=== PATIENT | female | born 1995 | race Caucasian/White ===

== ENCOUNTER 2017-04-10 23:15 | Emergency (ER) | payer OTHER ==
--- NOTE | 2017-04-11 03:17 | RADIOLOGY REPORT (SQ) ---
EXAM DESCRIPTION: CT THORACIC SPINE WITHOUT CLINICAL HISTORY: trauma COMPARISON: None available TECHNIQUE: Axial CT of the thoracic spine obtained without contrast. FINDINGS: Alignment of the thoracic spine is maintained without evidence of subluxation. No fracture identified. Vertebral body height preserved. Prevertebral soft tissues are unremarkable. Intervertebral disc height preserved. No fracture of the visualized ribs. No pneumothorax noted in the visualized lungs. No abnormalities of visualized mediastinum. Slice abdominal soft tissues are unremarkable. DLP: 295.69 mGy-cm IMPRESSION: 1. No acute fracture or subluxation of the thoracic spine. This exam was performed according to our departmental dose-optimization program, which includes automated exposure control, adjustment of the mA and/or kV according to patient size and/or use of iterative reconstruction technique.
[2017-04-11 03:32] VITALS: BP 103/55
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
== END 2017-04-11 03:40 | disposition home or self-care (01) ==
LOC: ER 23:15
DX: S29.019A Strain of muscle and tendon of unspecified wall of thorax, initial encounter (principal); V49.50XA Passenger injured in collision with unspecified motor vehicles in traffic accident, initial encounter; Z88.2 Allergy status to sulfonamides
CPT/HCPCS: 72128; 99283

== ENCOUNTER 2017-05-01 19:07 | Inpatient (IN) | payer OTHER ==
[2017-05-01] MEDS ORDERED: NORMAL SALINE 1000 ML 1,000 ML IV ONE ×2 (20:12→22:25)
[2017-05-01] MEDS ORDERED: LORAZEPAM INJ 2 MG/1 ML VIAL IV ONE (20:13)
[2017-05-01] MEDS ORDERED: ONDANSETRON HCL INJ/PF 4 MG/2 ML SDV IV ONE (20:13)
--- NOTE | 2017-05-01 20:17 | ER Document Report ---
ED Medical Screen (RME) - General Chief Complaint: Alcohol Withdrawl Stated Complaint: VOMITING Time Seen by Provider: 05/01/17 20:07 Notes: 21-year-old female here with complaints of lightheadedness, tremors, nausea, vomiting, and feeling bad that has been ongoing since earlier today. She reports that she went on a 1 week drinking binge with her friends and has been drinking 12 beers daily for the past 1 week. She reports that she does not usually drink alcohol except on special occasions that are few and far between. She cannot tell me why she did this. She denies any prior history of atrial fibrillation or heart problems. EXAM Tachycardic low 100s Clear to auscultation bilaterally Peripheral tremors visualized TRAVEL OUTSIDE OF THE [place] IN LAST 30 DAYS: No - Related Data Allergies/Adverse Reactions: Sulfa (Sulfonamide Antibiotics) Allergy (Verified 05/01/17 19:09) Past Medical History - Social History Frequency of alcohol use: Binge Drug Abuse: None Renal/ Medical History: Denies: Hx Peritoneal Dialysis Past Surgical History: Reports: Hx Orthopedic Surgery - R arm Physical Exam - Vital signs Vitals: Temp Pulse Resp BP Pulse Ox 98.7 F 103 H 18 124/81 99 05/01/17 19:38 05/01/17 19:38 05/01/17 19:38 05/01/17 19:38 05/01/17 19:38 Course - Vital Signs Vital signs: Temp Pulse Resp BP Pulse Ox 98.7 F 103 H 18 124/81 99 05/01/17 19:38 05/01/17 19:38 05/01/17 19:38 05/01/17 19:38 05/01/17 19:38
[2017-05-01] MEDS ORDERED: KETOROLAC TROMETHAMINE INJ/PF 30 MG/1 ML SDV IV ONE (21:06)
[2017-05-01 21:11] LABS: ABSOLUTE LYMPHOCYTES (AUTO) 1.8 10^3/uL (0.5-4.7); ABSOLUTE NEUT (AUTO) 9.1 10^3/uL (1.7-8.2); BASOPHILS % (AUTO) 0.3 % (0-2); HEMATOCRIT 44.6 % (36.0-47.0); HEMOGLOBIN 15.6 g/dL (12.0-15.5); HGB HCT DIFFERENCE 2.2; MEAN CORPUSCULAR HEMOGLOBIN 28.3 pg (27.0-33.4); MEAN CORPUSCULAR HGB CONC 35.1 g/dL (32.0-36.0); MEAN CORPUSCULAR VOLUME 81 fl (80-97); MONOCYTES % (AUTO) 8.2 % (3-13); RED BLOOD COUNT 5.53 10^6/uL (3.72-5.28); RED CELL DISTRIBUTION WIDTH 13.4 % (11.5-14.0); SEGMENTED NEUTROPHILS % (AUTO) 76.5 % (42-78); WHITE BLOOD COUNT 11.9 10^3/uL (4.0-10.5)
[2017-05-01 21:30] LABS: BLOOD UREA NITROGEN 10 mg/dL (7-20); CALCIUM 9.2 mg/dL (8.4-10.2); CREATININE RESULT 0.57 mg/dL (0.52-1.25); GLUCOSE 89 mg/dL (75-110); PHOSPHORUS 3.6 mg/dL (2.5-4.5)
[2017-05-01 21:42] LABS: CARBON DIOXIDE 31 mmol/L (22-30); CHLORIDE 66 mmol/L (98-107); SODIUM 122.7 mmol/L (137-145)
--- NOTE | 2017-05-01 21:50 | EKG REPORT ---
SEVERITY:- ABNORMAL ECG - SINUS RHYTHM NONSPECIFIC T ABNORMALITIES, ANT-LAT LEADS PROLONGED QT INTERVAL : Confirmed by: Anson Thomason 01-May-2017 21:48:50
[2017-05-01 21:56] LABS: ANION GAP 26 (5-19)
[2017-05-01 21:59] LABS: POTASSIUM 2.6 mmol/L (3.6-5.0)
[2017-05-01] MEDS ORDERED: POTASSI CL 20 MEQ/50 ML RIDER 20 MEQ/50 ML RTUPB IV SCH (22:25)
[2017-05-01 22:58] LABS: ALANINE AMINOTRANSFERASE 48 U/L (9-52); ALBUMIN 5.1 g/dL (3.5-5.0); ALKALINE PHOSPHATASE 187 U/L (38-126); ASPARTATE AMINO TRANSFERASE 100 U/L (14-36); BILIRUBIN,DIRECT 0.8 mg/dL (0.0-0.4); BILIRUBIN,TOTAL 2.8 mg/dL (0.2-1.3); LIPASE 106.7 U/L (23-300); TOTAL PROTEIN 8.1 g/dL (6.3-8.2)
[2017-05-01 23:01] LABS: ALCOHOL 148 mg/dL (NONE DETECTED)
--- NOTE | 2017-05-01 23:34 | ER Document Report ---
ED General - General Chief Complaint: Alcohol Withdrawl Stated Complaint: VOMITING Time Seen by Provider: 05/01/17 20:07 TRAVEL OUTSIDE OF THE [place] IN LAST 30 DAYS: No - HPI Patient complains to provider of: Vomiting Notes: Patient coming in for evaluation of vomiting patient states she has been drinking alcohol for approximately 1 week states she went on a alcohol binge patient states she has had episodes of this before patient denies any homicidal suicidal ideation. Patient denies any smoking or other drug abuse. Patient states last drink was a few beers earlier this morning. Upon my evaluation patient is standing up working out for examination room door patient is easily directed back to the stretcher looks no obvious distress. Patient states she does have a primary care physicians does not know the name of primary care physician. Patient states has history of anxiety and is on hydroxyzine for this denies any extra hydroxyzine over the last few days. Denies any fever chills nausea vomiting diarrhea. Patient states feeling better at this time no longer nauseous. - Related Data Allergies/Adverse Reactions: Sulfa (Sulfonamide Antibiotics) Allergy (Verified 05/01/17 19:09) Past Medical History - Social History Smoking Status: Current Every Day Smoker Frequency of alcohol use: Binge Drug Abuse: None Family History: Reviewed & Not Pertinent Patient has suicidal ideation: No Patient has homicidal ideation: No Renal/ Medical History: Denies: Hx Peritoneal Dialysis Past Surgical History: Reports: Hx Orthopedic Surgery - R arm Review of Systems - Review of Systems Constitutional: No symptoms reported EENT: No symptoms reported Cardiovascular: No symptoms reported Respiratory: No symptoms reported Gastrointestinal: Vomiting Genitourinary: No symptoms reported Female Genitourinary: No symptoms reported Musculoskeletal: No symptoms reported Skin: No symptoms reported Hematologic/Lymphatic: No symptoms reported Neurological/Psychological: No symptoms reported Physical Exam - Vital signs Vitals: Temp Pulse Resp BP Pulse Ox 98.7 F 103 H 18 124/81 99 05/01/17 19:38 05/01/17 19:38 05/01/17 19:38 05/01/17 19:38 05/01/17 19:38 Interpretation: Normal - General General appearance: Appears well, Alert - HEENT Head: Normocephalic, Atraumatic Eyes: Normal Pupils: PERRL - Respiratory Respiratory status: No respiratory distress Chest status: Nontender Breath sounds: Normal Chest palpation: Normal - Cardiovascular Rhythm: Regular Heart sounds: Normal auscultation Murmur: No - Abdominal Inspection: Normal Distension: No distension Bowel sounds: Normal Tenderness: Nontender Organomegaly: No organomegaly - Back Back: Normal, Nontender - Extremities General upper extremity: Normal inspection, Nontender, Normal color, Normal ROM , Normal temperature General lower extremity: Normal inspection, Nontender, Normal color, Normal ROM , Normal temperature, Normal weight bearing. No: Chente's sign - Neurological Neuro grossly intact: Yes Cognition: Normal Orientation: AAOx4 Adolph Coma Scale Eye Opening: Spontaneous [place] Coma Scale Verbal: Oriented Adolph Coma Scale Motor: Obeys Commands [place] Coma Scale Total: 15 Speech: Normal Motor strength normal: LUE, RUE, LLE, RLE Sensory: Normal - Psychological Associated symptoms: Normal affect, Normal mood - Skin Skin Temperature: Warm Skin Moisture: Dry Skin Color: Normal Course - Re-evaluation Re-evalutation: 05/01/17 23:49 Patient evaluation reveals no signs of overt alcohol withdrawals or DTs. Patient denies any visual disturbances patient is not having tremors. Patient' s vital signs otherwise normal at this time. Patient laboratory values shows elevated anion gap more likely due to normal Metabolic acidosis due to her alcohol abuse. Patient does have hyponatremia hypokalemia. IV fluids ordered potassium replacement IV was ordered. Magnesium is normal. Discussed with hospitalist will admit for further evaluation - Vital Signs Vital signs: Temp Pulse Resp BP Pulse Ox 98.7 F 103 H 18 124/81 99 05/01/17 19:38 05/01/17 19:38 05/01/17 19:38 05/01/17 19:38 05/01/17 19:38 - Laboratory Result Diagrams: 05/01/17 20:40 05/01/17 20:40 Laboratory results interpreted by me: 05/01/17 05/01/17 05/01/17 20:40 20:40 20:40 WBC 11.9 H RBC 5.53 H Hgb 15.6 H Absolute Neutrophils 9.1 H Sodium 122.7 L Potassium 2.6 L* Chloride 66 L Carbon Dioxide 31 H Anion Gap 26 H Total Bilirubin 2.8 H Direct Bilirubin 0.8 H AST 100 H Alkaline Phosphatase 187 H Albumin 5.1 H Discharge - Discharge Clinical Impression: Hyponatremia, Hypokalemia, Increased anion gap metabolic acidosis Alcohol intoxication Qualifiers: Complication of substance-induced condition: with unspecified complication Qualified Code(s): F10.929 - Alcohol use, unspecified with intoxication, unspecified Condition: Good Disposition: ADMITTED INPATIENT Admitting Provider: [facility] Unit Admitted: [facility]
[2017-05-01] MEDS ORDERED: IPRATROPIUM/ALBUTEROL 0.5-2.5 MG/3 ML AMPUL NEB PRN (23:35)
[2017-05-01] MEDS ORDERED: MAG HYDROX/AL HYDROX/SIMETH SUSP 30 ML UDCUP PO PRN (23:35)
[2017-05-01 23:47] LABS: PROTHROMBIN TIME 12.4 SEC (11.4-15.4)
[2017-05-01 23:49] LABS: APPEARANCE,URINE SLIGHTLY-CLOUDY; BILIRUBIN,URINE NEGATIVE (NEGATIVE); GLUCOSE, URINE NEGATIVE (NEGATIVE); KETONES,URINE 80 mg/dL (NEGATIVE); LEUKOCYTE ESTERASE,URINE SMALL (NEGATIVE); NITRITE,URINE NEGATIVE (NEGATIVE); PROTEIN,URINE >=500 mg/dL (NEGATIVE); URINE SPECIFIC GRAVITY 1.031
[2017-05-02 00:02] LABS: URINE BARBITURATES SCREEN NEGATIVE; URINE METHADONE SCREEN NEGATIVE; URINE OPIATES LOW NEGATIVE; URINE PHENCYCLIDINE SCREEN NEGATIVE
[2017-05-02] MEDS ORDERED: THIAMINE HCL INJ 200 MG/2 ML VIAL IV PRN (00:08)
[2017-05-02] MEDS ORDERED: FOLIC ACID INJ 5 MG/1 ML 10 ML VIAL IV PRN (00:08)
[2017-05-02] MEDS ORDERED: THIAMINE HCL 100 MG, FOLIC ACID 1 MG in NORMAL SALINE 250 ML IV ONE (00:15)
[2017-05-02] MEDS ORDERED: DIAZEPAM 5 MG TABLET PO ONE (00:15)
[2017-05-02] MEDS ORDERED: SODIUM CHLORIDE 3% 500 ML IV ONE (00:17)
[2017-05-02] MEDS: POTASSI CL 20 MEQ/50 ML RIDER 20 MEQ/50 ML RTUPB IV SCH ×6 (00:34→20:52)
[2017-05-02] MEDS ORDERED: ARIPIPRAZOLE 5 MG TABLET PO ONE (01:00)
[2017-05-02] MEDS ORDERED: SODIUM CHLORIDE 3% 100 ML IV ONE (01:30)
[2017-05-02] MEDS ORDERED: RINGERS SOLUTION,LACTATED 1,000 ML IV ONE (01:52)
[2017-05-02] MEDS ORDERED: INFLUENZA ADLT QUAD (36MOS+) 2017-18 VAC 0.5 ML SYR IM PRN (02:04)
[2017-05-02 02:28] LABS: HEMATOCRIT 38.5 % (36.0-47.0); HGB HCT DIFFERENCE 1.7; MEAN CORPUSCULAR HGB CONC 34.7 g/dL (32.0-36.0); MEAN CORPUSCULAR VOLUME 81 fl (80-97); RED BLOOD COUNT 4.77 10^6/uL (3.72-5.28); RED CELL DISTRIBUTION WIDTH 13.2 % (11.5-14.0); WHITE BLOOD COUNT 12.8 10^3/uL (4.0-10.5)
[2017-05-02 02:32] LABS: HEMOGLOBIN 13.4 g/dL (12.0-15.5)
[2017-05-02 02:37] LABS: ALANINE AMINOTRANSFERASE 44 U/L (9-52); ALBUMIN 3.9 g/dL (3.5-5.0); ALKALINE PHOSPHATASE 139 U/L (38-126); ANION GAP 18 (5-19); ASPARTATE AMINO TRANSFERASE 83 U/L (14-36); BILIRUBIN,DIRECT 0.6 mg/dL (0.0-0.4); BILIRUBIN,TOTAL 2.9 mg/dL (0.2-1.3); BLOOD UREA NITROGEN 10 mg/dL (7-20); CALCIUM 8.1 mg/dL (8.4-10.2); CARBON DIOXIDE 28 mmol/L (22-30); CHLORIDE 80 mmol/L (98-107); CREATININE RESULT 0.58 mg/dL (0.52-1.25); GLUCOSE 60 mg/dL (75-110); POTASSIUM 3.1 mmol/L (3.6-5.0)
[2017-05-02] MEDS ORDERED: DEXTROSE 50%-WATER 25 GM/50 ML DISP.SYRIN IV ONE ×2 (04:48→05:00)
--- NOTE | 2017-05-02 04:49 | PDOC H&P ---
History of Present Illness Admission Date/PCP: 05/02/17 00:03 Patient complains of: Nausea and hallucinations History of Present Illness: PERRY VAZQUEZ is a 21 year old female with a past medical history of anxiety disorder. Who presents after a 10 day binge of alcohol associated with nausea vomiting and visual hallucination. In the emergency room she is found to have metabolic acidosis, hyponatremia and a potassium of 2.6 she is referred to the hospitalist for admission patient denies new medication, previous episode of alcohol withdrawal or recreational drug use. She currently denies headache chest pain shortness of breath or palpitations. Past Medical History Medical History: None Pulmonary Medical History: Reports: None Neurological Medical History: Reports: None Endocrine Medical History: Reports: None Renal/ Medical History: Reports: None Malignancy Medical History: Reports: None GI Medical History: Reports: None Musculoskeltal Medical History: Reports: None Skin Medical History: Reports: None Psychiatric Medical History: Reports: General Anxiety Disorder Traumatic Medical History: Reports: None Hematology: Reports: None Infectious Medical History: Reports: None Past Surgical History Past Surgical History: Reports: Orthopedic Surgery - R arm Social History Information Source: Patient, Parent Smoking Status: Current Some Day Smoker Frequency of Alcohol Use: Occasional Hx Recreational Drug Use: No Hx Prescription Drug Abuse: No - Advance Directive Resuscitation Status: Full Code Family History Family History: Reviewed & Not Pertinent Parental Family History Reviewed: Yes Children Family History Reviewed: Yes Sibling(s) Family History Reviewed.: Yes Medication/Allergy Home Medications: Hydroxyzine HCl [Hydroxyzine HCl] 1 tab PO BID PRN 04/11/17 Allergies/Adverse Reactions: Sulfa (Sulfonamide Antibiotics) Allergy (Verified 05/01/17 19:09) peanut Adverse Reaction (Verified 05/02/17 02:15) Review of Systems Constitutional: PRESENT: as per HPI, anorexia, fatigue, weakness. ABSENT: fever (s), headache(s) Eyes: PRESENT: visual disturbances - Visual hallucination Ears: ABSENT: hearing changes Cardiovascular: ABSENT: chest pain, dyspnea on exertion, edema, orthropnea, palpitations Respiratory: ABSENT: cough, hemoptysis Gastrointestinal: PRESENT: abdominal pain, nausea, vomiting Genitourinary: ABSENT: dysuria, hematuria Musculoskeletal: ABSENT: joint swelling Neurological: ABSENT: abnormal gait, abnormal speech, confusion, dizziness, focal weakness, syncope Psychiatric: PRESENT: anxiety Endocrine: ABSENT: cold intolerance, heat intolerance, polydipsia, polyuria Hematologic/Lymphatic: ABSENT: easy bleeding, easy bruising Physical Exam Vital Signs: Temp Pulse Resp BP Pulse Ox 99.3 F 104 H 20 135/68 H 100 05/02/17 04:15 05/02/17 04:15 05/02/17 04:15 05/02/17 04:15 05/02/17 04:15 Intake & Output 04/30/17 05/01/17 05/02/17 11:59 11:59 11:59 Weight 64.8 kg General appearance: PRESENT: no acute distress, well-developed, well-nourished Head exam: PRESENT: atraumatic, normocephalic Eye exam: PRESENT: conjunctiva pink, EOMI, PERRLA. ABSENT: scleral icterus Ear exam: PRESENT: normal external ear exam Mouth exam: PRESENT: moist, tongue midline Neck exam: ABSENT: carotid bruit, JVD, lymphadenopathy, thyromegaly Respiratory exam: PRESENT: clear to auscultation sunday. ABSENT: rales, rhonchi, wheezes Cardiovascular exam: PRESENT: RRR. ABSENT: diastolic murmur, rubs, systolic murmur Pulses: PRESENT: normal dorsalis pedis pul Vascular exam: PRESENT: normal capillary refill GI/Abdominal exam: PRESENT: normal bowel sounds, soft. ABSENT: distended, guarding, mass, organolmegaly, rebound, tenderness Rectal exam: PRESENT: deferred Extremities exam: PRESENT: full ROM. ABSENT: calf tenderness, clubbing, pedal edema Neurological exam: PRESENT: alert, awake, oriented to person, oriented to place , oriented to time, oriented to situation, CN II-XII grossly intact. ABSENT: motor sensory deficit Psychiatric exam: PRESENT: appropriate affect, normal mood. ABSENT: homicidal ideation, suicidal ideation Skin exam: PRESENT: dry, intact, warm. ABSENT: cyanosis, rash Results Laboratory Results: 05/02/17 02:03 05/02/17 02:03 05/02/17 05/02/17 05/02/17 02:03 02:03 02:03 WBC 12.8 H RBC 4.77 Hgb 13.4 D Hct 38.5 MCV 81 MCH 28.0 MCHC 34.7 RDW 13.2 Plt Count 154 Sodium 126.0 L Cancelled Potassium 3.1 L Cancelled Chloride 80 L Cancelled Carbon Dioxide 28 Cancelled Anion Gap 18 Cancelled BUN 10 Cancelled Creatinine 0.58 Cancelled Est GFR ( Amer) > 60 Cancelled Est GFR (Non-Af Amer) > 60 Cancelled Glucose 60 L Cancelled Calcium 8.1 L Cancelled Total Bilirubin 2.9 H AST 83 H ALT 44 Alkaline Phosphatase 139 H Total Protein 6.0 L Albumin 3.9 Assessment & Plan - Diagnosis (1) Hyponatremia Is this a current diagnosis for this admission?: Yes Plan: Euvolemic hypotonicity secondary to excess beer intake. IMCU admission, 3% saline 100 mL, serum osmolarity and reevaluation of chemistry every 6 hours. Seizure precaution (2) Alcoholic gastritis Is this a current diagnosis for this admission?: Yes Plan: IV Protonix (3) Alcohol intoxication Qualifiers: Complication of substance-induced condition: with unspecified complication Qualified Code(s): F10.929 - Alcohol use, unspecified with intoxication, unspecified Is this a current diagnosis for this admission?: Yes Plan: Supportive measures, thiamine and folate as needed benzodiazepine, mental health consulted (4) Hypokalemia Is this a current diagnosis for this admission?: Yes Plan: Normal magnesium level, 80 mEq of potassium chloride ordered reevaluation of chemistry every 6 hours (5) Increased anion gap metabolic acidosis Is this a current diagnosis for this admission?: Yes Plan: Secondary to alcohol binging and calorie starvation. Lactated Ringer's and dextrose ordered reevaluation of chemistry every 6 - Time Time Spent: 50 to 70 Minutes - Inpatient Certification Medical Necessity: Need Close Monitoring Due to Risk of Patient Decompensation
[2017-05-02] MEDS ORDERED: PANTOPRAZOLE SODIUM 40 MG VIAL IV ONE (05:00)
[2017-05-02] MEDS: HEPARIN SOD (PORCINE) 5,000 UNIT/ML 1 ML SYRINGE SUBCUT SCH ×3 (05:12→21:03)
--- NOTE | 2017-05-02 07:57 | EKG REPORT ---
SEVERITY:- ABNORMAL ECG - SINUS RHYTHM PROBABLE LEFT ATRIAL ABNORMALITY NONSPECIFIC T ABNORMALITIES, ANT-LAT LEADS PROLONGED QT INTERVAL : Confirmed by: Anson Thomason 02-May-2017 07:56:58
[2017-05-02 08:36] LABS: ANION GAP 13 (5-19); BLOOD UREA NITROGEN 11 mg/dL (7-20); CALCIUM 8.4 mg/dL (8.4-10.2); CARBON DIOXIDE 27 mmol/L (22-30); CHLORIDE 84 mmol/L (98-107); GLUCOSE 76 mg/dL (75-110); POTASSIUM 3.2 mmol/L (3.6-5.0); SODIUM 123.6 mmol/L (137-145)
[2017-05-02] MEDS: DOCUSATE SODIUM 100 MG CAPSULE PO SCH ×2 (09:03→17:48)
[2017-05-02] MEDS: DIAZEPAM 5 MG TABLET PO SCH ×2 (09:03→21:04)
[2017-05-02] MEDS: ARIPIPRAZOLE 5 MG TABLET PO SCH ×2 (09:03→21:04)
--- NOTE | 2017-05-02 09:05 | PSYCHOLOGICAL NOTE ---
Psych Note - Psych Note Psych Note: 21-year-old female here with complaints of lightheadedness, tremors, nausea, vomiting, and feeling bad that has been ongoing since earlier today. She reports that she went on a 1 week drinking binge with her friends and has been drinking 12 beers daily for the past 1 week. She reports that she does not usually drink alcohol except on special occasions that are few and far between. Psychiatric consult requested for concerns of depression and alcoholism. Patient disclosed that she came to [facility] ED with concerns of withdrawal's. She states that she was having delusions; denies continued difficulties with her thought processes. Patient states she has a history of anxiety which she takes hydroxyzine (Vistaril), this is prescribed by her primary care physician. Patient has been in [place] for approximately 2 years. She previously lived in [place]. Patient reports that she had been drinking for 4 days because a friend was in town. Patient denies self-harm or thoughts of suicide stating "we were partying." Patient states that it is a "one time thing... I do not normally drink... It is rare when I do." Patient is alert and orientated to person, place, time and circumstance. Mood is euthymic with congruent affect. Patient denies suicidal and homicidal ideation. Patient denies auditory and visual hallucination reports some difficulties with hallucinations last night when going through withdrawal. Delusions are absent and behaviors congruent with intact reality based presentation i.e. organized, linear, rational thinking. Eye contact was well- maintained. Conversational speech was within normal rate, tone and prosody. Intellectual abilities appear to be within the average range. Attention and concentration are good. Insight, judgment, impulse control appear to be fair. 291.9 (F10.99) unspecified alcohol related disorder-at this time it is unclear the level of dependency/use of alcohol Impression\\plan: Patient is considered psychiatrically clear. Patient does not meet IVC criteria per [place] GS 122C. Patient denies suicidal and homicidal ideation stating that she was on a drinking binge for 4 days because she had a friend visiting. Delusions are absent and behaviors congruent with intact reality based presentation i.e. organized, linear, rational thinking. Clinician and patient discussed patient's thoughts on possible sobriety; she denies alcohol abuse stating that this is a rare occasion, that she normally does not drink. Patient has an outpatient provider where she receives her anxiety medication. Patient is recommended to continue outpatient services for her anxiety and is highly encouraged to abstain alcohol. Dr. Bishop was consulted and the care management of this patient.
[2017-05-02] MEDS ORDERED: NORMAL SALINE 1000 ML 1,000 ML IV PRN (09:23)
--- NOTE | 2017-05-02 14:21 | PDOC PROGRESS REPORT ---
Subjective Progress Note for:: 05/02/17 Subjective:: Patient is seen on morning rounds as a follow-up of hypokalemia, hyponatremia, nausea and vomiting secondary to acute alcohol intoxication. The patient is found resting in bed comfortably. She reports that she is continued to have nausea and vomiting throughout the night, however, it has slowed down in frequency. She reports that she is very tired and embarrassed. She also complains of generalized anxiety, no worse than her normal, and requests that I instruct the nurses to provider her scheduled medication an hour early. She denies fever, chills, chest pain, palpitations, dyspnea, cough, abd pain, and diarrhea. She has no questions or concerns at this time. Reason For Visit: HYPOKALEMIA,ALCOHOLIC HEPATITIS,HYPOKALEMIA, Physical Exam Vital Signs: Temp Pulse Resp BP Pulse Ox 99.0 F 96 16 127/73 H 99 05/02/17 12:14 05/02/17 12:14 05/02/17 12:14 05/02/17 12:14 05/02/17 08:25 Intake & Output 05/01/17 05/02/17 05/03/17 06:59 06:59 06:59 Intake Total 1735 0 Output Total 600 Balance 1735 -600 Weight 66 kg General appearance: PRESENT: no acute distress, well-developed, well-nourished, other - Overweight Head exam: PRESENT: atraumatic, normocephalic Eye exam: PRESENT: conjunctiva pink, EOMI, PERRLA. ABSENT: scleral icterus Ear exam: PRESENT: normal external ear exam Mouth exam: PRESENT: moist, tongue midline Neck exam: ABSENT: carotid bruit, JVD, lymphadenopathy, thyromegaly Respiratory exam: PRESENT: clear to auscultation sunday, symmetrical, unlabored. ABSENT: rales, rhonchi, wheezes Cardiovascular exam: PRESENT: RRR, +S1, +S2. ABSENT: diastolic murmur, rubs, systolic murmur Pulses: PRESENT: normal dorsalis pedis pul Vascular exam: PRESENT: normal capillary refill GI/Abdominal exam: PRESENT: normal bowel sounds, soft. ABSENT: distended, guarding, mass, organolmegaly, rebound, tenderness Rectal exam: PRESENT: deferred Extremities exam: PRESENT: full ROM. ABSENT: calf tenderness, clubbing, pedal edema Neurological exam: PRESENT: alert, awake, oriented to person, oriented to place , oriented to time, oriented to situation, CN II-XII grossly intact. ABSENT: motor sensory deficit Psychiatric exam: PRESENT: anxious, appropriate affect, normal mood. ABSENT: homicidal ideation, suicidal ideation Skin exam: PRESENT: dry, intact, warm. ABSENT: cyanosis, rash Results Laboratory Results: 05/02/17 02:03 05/02/17 08:05 05/02/17 05/02/17 05/02/17 02:03 02:03 02:03 WBC 12.8 H RBC 4.77 Hgb 13.4 D Hct 38.5 MCV 81 MCH 28.0 MCHC 34.7 RDW 13.2 Plt Count 154 Sodium 126.0 L Cancelled Potassium 3.1 L Cancelled Chloride 80 L Cancelled Carbon Dioxide 28 Cancelled Anion Gap 18 Cancelled BUN 10 Cancelled Creatinine 0.58 Cancelled Est GFR ( Amer) > 60 Cancelled Est GFR (Non-Af Amer) > 60 Cancelled Glucose 60 L Cancelled Calcium 8.1 L Cancelled Total Bilirubin 2.9 H AST 83 H ALT 44 Alkaline Phosphatase 139 H Total Protein 6.0 L Albumin 3.9 05/02/17 08:05 WBC RBC Hgb Hct MCV MCH MCHC RDW Plt Count Sodium 123.6 L Potassium 3.2 L Chloride 84 L Carbon Dioxide 27 Anion Gap 13 BUN 11 Creatinine 0.60 Est GFR ( Amer) > 60 Est GFR (Non-Af Amer) > 60 Glucose 76 Calcium 8.4 Total Bilirubin AST ALT Alkaline Phosphatase Total Protein Albumin Assessment & Plan - Diagnosis (1) Hyponatremia Is this a current diagnosis for this admission?: Yes Plan: Euvolemic hyponatremia secondary to excessive beer intake. She was admitted to the IMCU and received 3% saline 100 mL's last night and was then placed on LR. Sodium has since decreased (122.7-->126.0-->123.6). Will place pt on NS at 100ml/hr and continue to trend BMP q6 hrs. Seizure precautions are in place. (2) Hypokalemia Is this a current diagnosis for this admission?: Yes Plan: Normal magnesium level. Pt has received a total of 80 mEq of potassium chloride via IV and p.o. routes. Will continue to trend labs q6h and replace as necessary. (3) Alcohol intoxication Qualifiers: Complication of substance-induced condition: with unspecified complication Qualified Code(s): F10.929 - Alcohol use, unspecified with intoxication, unspecified Is this a current diagnosis for this admission?: Yes Plan: Supportive measures; thiamine and folate daily. Scheduled valium 5 mg q 12 hrs with Ativan as needed for withdrawal symptoms. Psychology has met with patient and recommend that she follow up with primary care provider as outpatient. (4) Alcoholic gastritis Is this a current diagnosis for this admission?: Yes (5) Increased anion gap metabolic acidosis Is this a current diagnosis for this admission?: Yes Plan: Resolved; anion gap has closed following IVF resuscitation. Secondary to alcohol binge drinking and calorie starvation. - Time Time Spent with patient: 15-24 minutes Anticipated discharge: Home - Inpatient Certification Based on my medical assessment, after consideration of the patient's comorbidities, presenting symptoms, or acuity I expect that the services needed warrant INPATIENT care.: Yes I certify that my determination is in accordance with my understanding of Medicare's requirements for reasonable and necessary INPATIENT services [42 CFR 412.3e].: Yes Medical Necessity: Need Close Monitoring Due to Risk of Patient Decompensation, Need For IV Fluids
[2017-05-02 15:41] LABS: ANION GAP 13 (5-19); BLOOD UREA NITROGEN 10 mg/dL (7-20); CALCIUM 8.3 mg/dL (8.4-10.2); CARBON DIOXIDE 28 mmol/L (22-30); CHLORIDE 87 mmol/L (98-107); CREATININE RESULT 0.52 mg/dL (0.52-1.25); GLUCOSE 94 mg/dL (75-110); SODIUM 127.7 mmol/L (137-145)
[2017-05-02 15:52] LABS: POTASSIUM 2.7 mmol/L (3.6-5.0)
[2017-05-02] MEDS ORDERED: POTASSI CL 20 MEQ/D5-1/2NS 1L 1,000 ML IV PRN (16:14)
[2017-05-02] MEDS ORDERED: POTASSI CL 20 MEQ/NS 1L 1,000 ML IV PRN (16:19)
[2017-05-02] MEDS ORDERED: LIDOCAINE 2% VISCOUS SOLN 20 ML UDCUP PO ONE (18:00)
[2017-05-02] MEDS ORDERED: METOCLOPRAMIDE HCL ORAL SOLN 10 MG/10 ML UDCUP PO ONE (18:00)
[2017-05-02] MEDS ORDERED: MAG HYDROX/AL HYDROX/SIMETH SUSP 30 ML UDCUP PO ONE (18:00)
[2017-05-02] MEDS: PANTOPRAZOLE SODIUM 40 MG VIAL IV SCH (21:03)
[2017-05-02] MEDS ORDERED: THIAMINE HCL 100 MG, FOLIC ACID 1 MG in NORMAL SALINE 250 ML IV SCH (22:00)
[2017-05-03 01:16] LABS: ANION GAP 11 (5-19); BLOOD UREA NITROGEN 6 mg/dL (7-20); CALCIUM 8.7 mg/dL (8.4-10.2); CARBON DIOXIDE 27 mmol/L (22-30); CHLORIDE 95 mmol/L (98-107); CREATININE RESULT 0.55 mg/dL (0.52-1.25); GLUCOSE 79 mg/dL (75-110); POTASSIUM 3.3 mmol/L (3.6-5.0); SODIUM 132.7 mmol/L (137-145)
[2017-05-03] MEDS: HEPARIN SOD (PORCINE) 5,000 UNIT/ML 1 ML SYRINGE SUBCUT SCH (05:58)
[2017-05-03 06:37] LABS: HEMATOCRIT 34.7 % (36.0-47.0); HEMOGLOBIN 11.8 g/dL (12.0-15.5); HGB HCT DIFFERENCE 0.7; MEAN CORPUSCULAR HEMOGLOBIN 28.5 pg (27.0-33.4); MEAN CORPUSCULAR VOLUME 84 fl (80-97); RED BLOOD COUNT 4.14 10^6/uL (3.72-5.28); RED CELL DISTRIBUTION WIDTH 13.4 % (11.5-14.0); WHITE BLOOD COUNT 5.5 10^3/uL (4.0-10.5)
[2017-05-03 07:06] LABS: ANION GAP 11 (5-19); BLOOD UREA NITROGEN 5 mg/dL (7-20); CALCIUM 8.5 mg/dL (8.4-10.2); CARBON DIOXIDE 27 mmol/L (22-30); CHLORIDE 95 mmol/L (98-107); CREATININE RESULT 0.55 mg/dL (0.52-1.25); GLUCOSE 88 mg/dL (75-110); SODIUM 132.7 mmol/L (137-145)
[2017-05-03] MEDS ORDERED: POTASSIUM CHLORIDE 10 MEQ TABLET.SA PO ONE (07:31)
[2017-05-03] MEDS: NORMAL SALINE 1000 ML 1,000 ML IV PRN ×2 (08:20→18:58)
[2017-05-03] MEDS: POTASSI CL 20 MEQ/50 ML RIDER 20 MEQ/50 ML RTUPB IV SCH ×2 (08:20→10:47)
[2017-05-03] MEDS: DIAZEPAM 5 MG TABLET PO SCH ×2 (09:15→21:45)
[2017-05-03] MEDS: PANTOPRAZOLE SODIUM 40 MG VIAL IV SCH ×2 (09:16→21:45)
[2017-05-03] MEDS: DOCUSATE SODIUM 100 MG CAPSULE PO SCH ×2 (09:16→17:31)
[2017-05-03] MEDS: ARIPIPRAZOLE 5 MG TABLET PO SCH ×2 (09:16→21:45)
[2017-05-03] MEDS: MAG HYDROX/AL HYDROX/SIMETH SUSP 30 ML UDCUP PO PRN ×2 (10:49→18:05)
--- NOTE | 2017-05-03 11:51 | PDOC PROGRESS REPORT ---
Subjective Progress Note for:: 05/03/17 Subjective:: Patient is seen on morning rounds as a follow-up of hypokalemia, hyponatremia, nausea and vomiting secondary to acute alcohol intoxication. The patient is found resting in bed comfortably. She reports that her last episode of emesis was last night. She does continue to have throat discomfort described as "burning" and back pain "it feels like something is going to pop" with swallowing and so has not had much by way of p.o. intake. She denies fever, chills, chest pain, palpitations, dyspnea, cough, abd pain, and diarrhea. She has no questions or concerns at this time. Reason For Visit: HYPOKALEMIA,ALCOHOLIC HEPATITIS,HYPOKALEMIA, Physical Exam Vital Signs: Temp Pulse Resp BP Pulse Ox 99.2 F 77 17 118/78 99 05/03/17 09:07 05/03/17 09:07 05/03/17 09:07 05/03/17 09:07 05/03/17 09:07 Intake & Output 05/02/17 05/03/17 05/04/17 06:59 06:59 06:59 Intake Total 1735 2918 Output Total 1042 Balance 1735 1876 Weight 66 kg 66 kg General appearance: PRESENT: no acute distress, well-developed, well-nourished, other - Overweight Head exam: PRESENT: atraumatic, normocephalic Eye exam: PRESENT: conjunctiva pink, EOMI, PERRLA. ABSENT: scleral icterus Ear exam: PRESENT: normal external ear exam Mouth exam: PRESENT: moist, tongue midline Neck exam: ABSENT: carotid bruit, JVD, lymphadenopathy, thyromegaly Respiratory exam: PRESENT: clear to auscultation sunday, symmetrical, unlabored. ABSENT: rales, rhonchi, wheezes Cardiovascular exam: PRESENT: RRR, +S1, +S2. ABSENT: diastolic murmur, rubs, systolic murmur Pulses: PRESENT: normal dorsalis pedis pul Vascular exam: PRESENT: normal capillary refill GI/Abdominal exam: PRESENT: normal bowel sounds, soft. ABSENT: distended, guarding, mass, organolmegaly, rebound, tenderness Rectal exam: PRESENT: deferred Extremities exam: PRESENT: full ROM. ABSENT: calf tenderness, clubbing, pedal edema Neurological exam: PRESENT: alert, awake, oriented to person, oriented to place , oriented to time, oriented to situation, CN II-XII grossly intact. ABSENT: motor sensory deficit Psychiatric exam: PRESENT: anxious, appropriate affect, normal mood. ABSENT: homicidal ideation, suicidal ideation Skin exam: PRESENT: dry, intact, warm. ABSENT: cyanosis, rash Results Laboratory Results: 05/03/17 06:17 05/03/17 06:17 05/02/17 05/03/17 05/03/17 15:15 00:20 06:17 WBC 5.5 RBC 4.14 Hgb 11.8 L Hct 34.7 L MCV 84 MCH 28.5 MCHC 34.0 RDW 13.4 Plt Count 101 L Sodium 127.7 L 132.7 L Potassium 2.7 L* 3.3 L Chloride 87 L 95 L Carbon Dioxide 28 27 Anion Gap 13 11 BUN 10 6 L Creatinine 0.52 0.55 Est GFR ( Amer) > 60 > 60 Est GFR (Non-Af Amer) > 60 > 60 Glucose 94 79 Calcium 8.3 L 8.7 05/03/17 06:17 WBC RBC Hgb Hct MCV MCH MCHC RDW Plt Count Sodium 132.7 L Potassium 3.0 L* Chloride 95 L Carbon Dioxide 27 Anion Gap 11 BUN 5 L Creatinine 0.55 Est GFR ( Amer) > 60 Est GFR (Non-Af Amer) > 60 Glucose 88 Calcium 8.5 Assessment & Plan - Diagnosis (1) Hyponatremia Is this a current diagnosis for this admission?: Yes Plan: Euvolemic hyponatremia secondary to excessive beer intake. Trending Sodium and adjusting IVF as necessary. Seizure precautions are in place. Continue BMP q6 hrs. (2) Hypokalemia Is this a current diagnosis for this admission?: Yes Plan: Continues to require potassium supplementation. Will recheck magnesiu, and continue to trend labs q6h. Will replace as necessary. (3) Alcohol intoxication Qualifiers: Complication of substance-induced condition: with unspecified complication Qualified Code(s): F10.929 - Alcohol use, unspecified with intoxication, unspecified Is this a current diagnosis for this admission?: Yes Plan: Supportive measures; thiamine and folate daily. Scheduled valium 5 mg q 12 hrs with Ativan as needed for withdrawal symptoms. Psychology has met with patient and recommend that she follow up with primary care provider as outpatient. (4) Alcoholic gastritis Is this a current diagnosis for this admission?: Yes Plan: Relieved with GI cocktail yesterday. Continue IV Protonix q12 h. Will add as needed Maalox. (5) Increased anion gap metabolic acidosis Is this a current diagnosis for this admission?: Yes Plan: Resolved; anion gap has closed following IVF resuscitation. Secondary to alcohol binge drinking and calorie starvation. - Time Time Spent with patient: 15-24 minutes Medications reviewed and adjusted accordingly: Yes Anticipated discharge: Home Within: within 48 hours - Inpatient Certification Based on my medical assessment, after consideration of the patient's comorbidities, presenting symptoms, or acuity I expect that the services needed warrant INPATIENT care.: Yes I certify that my determination is in accordance with my understanding of Medicare's requirements for reasonable and necessary INPATIENT services [42 CFR 412.3e].: Yes Medical Necessity: Need Close Monitoring Due to Risk of Patient Decompensation, Need For IV Fluids
[2017-05-03 12:25] LABS: ANION GAP 10 (5-19); BLOOD UREA NITROGEN 3 mg/dL (7-20); CARBON DIOXIDE 26 mmol/L (22-30); CHLORIDE 98 mmol/L (98-107); CREATININE RESULT 0.48 mg/dL (0.52-1.25); GLUCOSE 88 mg/dL (75-110); POTASSIUM 3.8 mmol/L (3.6-5.0); SODIUM 134.2 mmol/L (137-145)
[2017-05-03] MEDS: ACETAMINOPHEN 325 MG TABLET PO PRN ×2 (14:00→19:02)
[2017-05-03] MEDS: THIAMINE HCL 100 MG, FOLIC ACID 1 MG in NORMAL SALINE 250 ML IV SCH (14:00)
[2017-05-03 22:39] LABS: ANION GAP 10 (5-19); BLOOD UREA NITROGEN 3 mg/dL (7-20); CALCIUM 9.3 mg/dL (8.4-10.2); CARBON DIOXIDE 26 mmol/L (22-30); CHLORIDE 97 mmol/L (98-107); CREATININE RESULT 0.54 mg/dL (0.52-1.25); GLUCOSE 93 mg/dL (75-110); POTASSIUM 3.7 mmol/L (3.6-5.0)
[2017-05-04] MEDS: NORMAL SALINE 1000 ML 1,000 ML IV PRN (03:27)
[2017-05-04] MEDS: ACETAMINOPHEN 325 MG TABLET PO PRN (03:30)
[2017-05-04 07:51] LABS: ANION GAP 11 (5-19); BLOOD UREA NITROGEN 3 mg/dL (7-20); CALCIUM 9.2 mg/dL (8.4-10.2); CARBON DIOXIDE 22 mmol/L (22-30); CHLORIDE 104 mmol/L (98-107); CREATININE RESULT 0.49 mg/dL (0.52-1.25); GLUCOSE 85 mg/dL (75-110); POTASSIUM 3.6 mmol/L (3.6-5.0); SODIUM 137.1 mmol/L (137-145)
[2017-05-04] MEDS: ARIPIPRAZOLE 5 MG TABLET PO SCH (09:12)
[2017-05-04] MEDS: PANTOPRAZOLE SODIUM 40 MG VIAL IV SCH (09:12)
[2017-05-04] MEDS: THIAMINE HCL 100 MG, FOLIC ACID 1 MG in NORMAL SALINE 250 ML IV SCH (09:28)
[2017-05-04] MEDS: DIAZEPAM 5 MG TABLET PO SCH (09:28)
[2017-05-04] MEDS: DOCUSATE SODIUM 100 MG CAPSULE PO SCH (09:28)
[2017-05-04 09:33] VITALS: BP 114/67
--- NOTE | 2017-05-04 15:04 | PDOC DISCHARGE SUMMARY ---
General - Admit/Disc Date/PCP Admission Date/Primary Care Provider: 05/02/17 00:03 Discharge Date: 05/04/17 - Discharge Diagnosis (1) Hyponatremia Is this a current diagnosis for this admission?: Yes Summary: Euvolemic hyponatremia secondary to excessive beer intake. Sodium was corrected with IV fluids. (2) Hypokalemia Is this a current diagnosis for this admission?: Yes Summary: Replete. Secondary to persistent nausea and vomiting in the setting of acute alcohol intoxication. Patient with a normal magnesium level. Did receive multiple K riders and oral potassium replacement. (3) Alcohol intoxication Is this a current diagnosis for this admission?: Yes Summary: The patient has reportedly been binge drinking beer for 7-10 days. Alcohol level 148 on admission. She was provided thiamine and folic acid. She was initially on scheduled benzodiazepines which were titrated down and discontinued without adverse events. Patient did receive a psychiatry screening who cleared her for discharge and follow-up with primary care provider. (4) Alcoholic gastritis Is this a current diagnosis for this admission?: Yes Summary: The patient was placed on IV Protonix and Maalox as needed. Her discomfort improved and she was tolerating a regular diet by time of discharge. She is sent home with a prescription for Zofran and Prilosec. (5) Increased anion gap metabolic acidosis Is this a current diagnosis for this admission?: Yes Summary: Resolved. Secondary to alcohol binge drinking and caloric starvation. The patient was started on IV fluids and her chemistries were trended. The anion gap closed quickly with supportive care. - Additional Information Resuscitation Status: Full Code Discharge Diet: As Tolerated, Other (Comments) Discharge Activity: Activity As Tolerated Home Medications: Hydroxyzine HCl 25 mg PO BIDP PRN 04/11/17 Aripiprazole [Abilify 5 mg Tablet] 5 mg PO Q12 tablet 05/04/17 Famotidine [Pepcid 20 mg Tablet] 20 mg PO BID #60 tablet 05/04/17 Ondansetron [Zofran Odt 4 mg Tablet] 4 mg PO Q4HP PRN #30 tab.rapdis 05/04/17 History of Present Illness History of Present Illness: Per H&P by Dr. Powell: PERRY CULP is a 21 year old female with a past medical history of anxiety disorder who presents after a 10 day binge of alcohol associated with nausea vomiting and visual hallucination. In the emergency room she was found to have metabolic acidosis, hyponatremia and a potassium of 2.6 she is referred to the hospitalist for admission patient denies any medication, previous episode of alcohol withdrawal or recreational drug use. She currently denies headache chest pain shortness of breath or palpitations. Physical Exam Vital Signs: Temp Pulse Resp BP Pulse Ox 98.3 F 66 16 114/67 100 05/04/17 09:32 05/04/17 09:32 05/04/17 09:32 05/04/17 09:32 05/04/17 09:32 Intake & Output 05/03/17 05/04/17 05/05/17 06:59 06:59 06:59 Intake Total 2918 3686 Output Total 1042 Balance 1876 3686 Weight 66 kg 66.9 kg General appearance: PRESENT: no acute distress, well-developed, well-nourished Head exam: PRESENT: atraumatic, normocephalic Eye exam: PRESENT: conjunctiva pink, EOMI, PERRLA. ABSENT: scleral icterus Ear exam: PRESENT: normal external ear exam Mouth exam: PRESENT: moist, tongue midline Neck exam: ABSENT: carotid bruit, JVD, lymphadenopathy, thyromegaly Respiratory exam: PRESENT: clear to auscultation sunday. ABSENT: rales, rhonchi, wheezes Cardiovascular exam: PRESENT: RRR. ABSENT: diastolic murmur, rubs, systolic murmur Pulses: PRESENT: normal dorsalis pedis pul Vascular exam: PRESENT: normal capillary refill GI/Abdominal exam: PRESENT: normal bowel sounds, soft. ABSENT: distended, guarding, mass, organolmegaly, rebound, tenderness Rectal exam: PRESENT: deferred Extremities exam: PRESENT: full ROM. ABSENT: calf tenderness, clubbing, pedal edema Neurological exam: PRESENT: alert, awake, oriented to person, oriented to place , oriented to time, oriented to situation, CN II-XII grossly intact. ABSENT: motor sensory deficit Psychiatric exam: PRESENT: appropriate affect, normal mood. ABSENT: homicidal ideation, suicidal ideation Skin exam: PRESENT: dry, intact, warm. ABSENT: cyanosis, rash Results Laboratory Results: 05/03/17 06:17 05/04/17 07:10 05/03/17 05/04/17 21:55 07:10 Sodium 133.0 L 137.1 Potassium 3.7 3.6 Chloride 97 L 104 Carbon Dioxide 26 22 Anion Gap 10 11 BUN 3 L 3 L Creatinine 0.54 0.49 L Est GFR ( Amer) > 60 > 60 Est GFR (Non-Af Amer) > 60 > 60 Glucose 93 85 Calcium 9.3 9.2 Qualifiers P[place]INT BEING DISCHARGED WITH ANY OF THE FOLLOWING DIAGNOSIS?: No Plan Discharge Plan: Discharge to home with self-care. To follow-up with primary care provider within 1-2 weeks. Time Spent: Less than 30 Minutes
== END 2017-05-04 09:55 | disposition home or self-care (01) | DRG 897 ==
LOC: ER 19:07 → EH 05-02 00:03 → 3S 05-02 01:51
PROVIDERS: ADMIT Internal Medicine; ATTEND Internal Medicine
PROC: 3E0234Z Introduction of Serum, Toxoid and Vaccine into Muscle, Percutaneous Approach (ICD-10-PCS; principal; 2017-05-04)
DX: F10.229 Alcohol dependence with intoxication, unspecified (principal); E87.1 Hypo-osmolality and hyponatremia; E87.2 Acidosis; K29.20 Alcoholic gastritis without bleeding; Y90.6 Blood alcohol level of 120-199 mg/100 ml; E87.6 Hypokalemia; F41.1 Generalized anxiety disorder; K70.10 Alcoholic hepatitis without ascites; F17.210 Nicotine dependence, cigarettes, uncomplicated; Z23 Encounter for immunization
CPT/HCPCS: 36415; 80048; 80053; 80076; 80307; 81001; 81025; 82962; 83690; 83735; 83930; 83935; 84100; 84443; 84702; 85025; 85027; 85610; 90686; 93005; 93010; 96361; 96365; 96375; 99285; J1644; J2060; J2405; J3411; J3480; J3490; J7030; J7050; J7120; S0164